=== PATIENT | female | born 1990 | race Two or more races ===

== ENCOUNTER 2016-08-15 17:33 | Emergency (ER) | payer OTHER ==
[2016-08-15] MEDS ORDERED: SULFAMETH/TRIMETH DS 800/160 MG TABLET PO STA (18:10)
[2016-08-15] MEDS ORDERED: SULFAMETH/TRIMETH DS 800/160 MG TABLET PO ONE (18:15)
== END 2016-08-15 18:17 | disposition home or self-care (01) ==
DX: N30.90 Cystitis, unspecified without hematuria (principal); J45.909 Unspecified asthma, uncomplicated
CPT/HCPCS: 81001; 81025; 87086; 99283; A9270

== ENCOUNTER 2016-09-08 13:51 | Emergency (ER) | payer OTHER ==
[2016-09-08] MEDS ORDERED: KETOROLAC 60 MG/2 ML VIAL IM STA (15:46)
[2016-09-08] MEDS ORDERED: KETOROLAC 60 MG/2 ML VIAL ONE (15:50)
== END 2016-09-08 16:13 | disposition home or self-care (01) ==
DX: S16.1XXA Strain of muscle, fascia and tendon at neck level, initial encounter (principal); S46.912A Strain of unspecified muscle, fascia and tendon at shoulder and upper arm level, left arm, initial encounter; S09.90XA Unspecified injury of head, initial encounter; V43.62XA Car passenger injured in collision with other type car in traffic accident, initial encounter; Y92.488 Other paved roadways as the place of occurrence of the external cause; J45.909 Unspecified asthma, uncomplicated

== ENCOUNTER 2017-03-13 16:50 | Emergency (ER) | payer OTHER ==
[2017-03-13 18:26] LABS: BILIRUBIN,URINE NEGATIVE (NEGATIVE)
[2017-03-13 18:29] LABS: UA w/ MICROSCOPIC CHARGE YES
[2017-03-13 18:30] LABS: HCG UR QUAL NEGATIVE
[2017-03-13 18:45] LABS: UR CULTURE IF IND INDICATED
[2017-03-13 19:40] VITALS: BP 117/70
[2017-03-13] MEDS ORDERED: HYDROcod/ACETAM 5/325 MG TABLET PO STA (19:44)
[2017-03-13] MEDS ORDERED: ONDANSETRON ODT 4 MG TABLET TL STA (19:44)
[2017-03-13] MEDS ORDERED: CIPROFLOXACIN 250 MG TABLET PO STA (19:44)
--- NOTE | 2017-03-13 19:46 | ED Physician Documentation ---
PD HPI FEMALE - Stated complaint Stated Complaint: FEMALE - Chief complaint Chief Complaint: Abd Pain - History obtained from History obtained from: Patient - History of Present Illness Timing - onset: Other (One day of urinary frequency and dysuria with chills and nausea without vomiting and right flank pain. No vaginal discharge or potential for . No underlying health issues.) Review of Systems Constitutional: reports: Chills, Fatigue. denies: Fever Nose: denies: Rhinorrhea / runny nose, Congestion Cardiac: reports: Reviewed and negative Respiratory: reports: Reviewed and negative PD PAST MEDICAL HISTORY - Past Medical History Respiratory: Asthma - Past Surgical History Past Surgical History: Yes Ortho: Arthroscopic surgery HEENT: Rhinoplasty - Present Medications Home Medications: Ambulatory Orders Medication Instructions Recorded Confirmed Albuterol Sulf [Ventolin Hfa 1 puffs INH Q4H PRN 08/15/16 09/08/16 Inhaler] Cetirizine [ZyrTEC] 10 mg PO DAILY 09/08/16 09/08/16 Cyclobenzaprine [Flexeril] 10 mg PO TID PRN #20 tablet 09/08/16 Fluticasone/Salmeterol [Advair 1 each INH DAILY 09/08/16 09/08/16 250-50 Diskus] Hydrocodone/Acetaminophen 1 - 2 each PO Q6H PRN #10 tablet 09/08/16 [Hydrocodon-Acetaminophen 5-325] Montelukast [Singulair] 10 mg PO DAILY 09/08/16 09/08/16 Ondansetron Odt [Zofran] 4 mg TL Q6H PRN #10 tablet 09/08/16 Ciprofloxacin HCl [Cipro] 500 mg PO BID #14 tablet 03/13/17 HYDROcod/ACETAM 5/325 [Hudson 5/325] 1 - 2 ea PO Q6H PRN #10 tablet 03/13/17 Ondansetron HCl [Zofran] 4 mg PO Q6H PRN #7 tablet 03/13/17 - Allergies Allergies/Adverse Reactions: Allergies Allergy/AdvReac Type Severity Reaction Status Date / Time Penicillins Allergy Anaphylaxis Verified 03/13/17 17:06 - Social History Does the pt smoke?: No Smoking Status: Never smoker Does the pt drink ETOH?: Yes Does the pt have substance abuse?: No - Immunizations Immunizations are current?: Yes Immunizations: TDAP >10years/unknown - POLST Patient has POLST: No PD ED PE NORMAL - Vitals Vital signs reviewed: Yes - General General: Alert and oriented X 3, No acute distress - Respiratory Respiratory: No respiratory distress, Clear bilaterally - Abdomen Abdomen: Soft, Non tender - Back Back: Other (Mild right CVA tenderness) - Derm Derm: Normal color, Warm and dry - Neuro Neuro: Alert and oriented X 3, Normal speech - Psych Psych: Normal mood, Normal affect Results - Vitals Vitals: Vital Signs - 24 hr 03/13/17 03/13/17 17:04 19:39 Temperature 36.7 C 36.6 C Heart Rate 66 73 Respiratory 16 15 Rate Blood Pressure 123/68 117/70 O2 Saturation 100 96 Oxygen O2 Source Room air - Labs Labs: Laboratory Tests 03/13/17 17:25 Urine Color YELLOW Urine Clarity CLEAR Urine pH 7.0 Ur Specific [place]ow 1.015 Urine Protein NEGATIVE Urine Glucose (UA) NEGATIVE Urine Ketones NEGATIVE Urine Occult Blood TRACE-LYSE Urine Nitrite NEGATIVE Urine Bilirubin NEGATIVE Urine Urobilinogen 0.2 (NORMAL) Ur Leukocyte Esterase TRACE H Urine RBC 0-5 Urine WBC 6-10 H Ur Squamous Epith Cells NONE SEEN Urine Bacteria None Seen Ur Microscopic Review INDICATED Urine Culture Comments INDICATED Urine HCG, Qual NEGATIVE PD MEDICAL DECISION MAKING - ED course ED course: The patient and family were counseled as to the diagnosis and need for follow- up. I counseled the patient with regard to signs and symptoms that would necessitate an urgent reevaluation in the emergency department. They understand they are welcome to return at any time if worse or if not improving as expected. This document was made in part using voice recognition software. While efforts are made to proofread this documents, sound alike and grammatical errors may occur. Departure - Departure Disposition: 01 Home, Self Care Clinical Impression: Pyelonephritis Condition: Good Record reviewed to determine appropriate education?: Yes Instructions: Pyelonephritis Dc Prescriptions: Ciprofloxacin HCl [Cipro] 500 mg PO BID #14 tablet HYDROcod/ACETAM 5/325 [Hudson 5/325] 1 - 2 ea PO Q6H PRN #10 tablet PRN Reason: Pain Ondansetron HCl [Zofran] 4 mg PO Q6H PRN #7 tablet PRN Reason: Nausea / Vomiting Comments: Call your doctor to arrange a follow-up appointment, make the next available appointment. In the interim, return anytime if worse or if new symptoms develop. We will culture your urine, the results should be done in 48-72 hours. If an antibiotic change is necessary we will call you.
[2017-03-13] MEDS ORDERED: ONDANSETRON ODT 4 MG TABLET ONE (19:54)
[2017-03-13] MEDS ORDERED: HYDROcod/ACETAM 5/325 MG TABLET ONE (19:54)
[2017-03-13] MEDS ORDERED: CIPROFLOXACIN 250 MG TABLET PO ONE (19:55)
== END 2017-03-13 19:54 | disposition home or self-care (01) ==
LOC: ED 16:50
DX: N12 Tubulo-interstitial nephritis, not specified as acute or chronic (principal); J45.909 Unspecified asthma, uncomplicated
CPT/HCPCS: 81001; 81025; 87086; 99283; A9270; Q0162; 81003

== ENCOUNTER 2017-06-08 23:15 | Emergency (ER) | payer OTHER ==
[2017-06-08 23:28] VITALS: BP 115/73
--- NOTE | 2017-06-09 00:08 | XRAY Report ---
EXAM: RIGHT FOREARM RADIOGRAPHY EXAM DATE: 06/08/2017 11:51 PM. CLINICAL HISTORY: Fell, forearm swelling. COMPARISON: None. TECHNIQUE: 2 views. FINDINGS: Bones: Normal. No fractures or bone lesions. Joints: Normal. No effusions or subluxations in the visualized wrist or elbow joints. Soft Tissues: Normal. No soft tissue swelling. IMPRESSION: Normal forearm radiography. [facility] Referring Provider Line: [phone] SITE ID: [id number]
--- NOTE | 2017-06-09 00:10 | ED Physician Documentation ---
PD HPI UPPER EXT INJURY - Stated complaint Stated Complaint: RT ARM INJURY - Chief complaint Chief Complaint: Ext Problem - History obtained from History obtained from: Patient, Friend - History of Present Illness Location: Right, Forearm Type of injury: Fall Where injury occurred: Other Timing - onset: Today Timing - details: Abrupt onset Improved by: Rest, Immobilization Worsened by: Moving, Palpating Associated symptoms: Swelling, Discolored Contributing factors: No: Anticoagulated, Prior ortho surgery Similar symptoms before: Has not had sx before Recently seen: Not recently seen - Additonal information Additional information: patient is a 26 year old female with no significant past medical history who is presenting to the emergency department for right arm pain. patient states that she was dancing when she was falling over she hit her forearm on the table. patient denies any other injuries at this time. Review of Systems Constitutional: reports: Reviewed and negative Eyes: reports: Reviewed and negative Ears: reports: Reviewed and negative Nose: reports: Reviewed and negative Throat: reports: Reviewed and negative Cardiac: reports: Reviewed and negative Respiratory: reports: Reviewed and negative GI: denies: Nausea, Vomiting : reports: Reviewed and negative Skin: denies: Abrasion (s), Laceration (s) Musculoskeletal: reports: Extremity pain, Extremity swelling Neurologic: denies: Generalized weakness, Focal weakness, Numbness Immunocompromised: denies: Immunocompromised PD PAST MEDICAL HISTORY - Past Medical History Past Medical History: Yes Cardiovascular: None Respiratory: Asthma Neuro: None Endocrine/Autoimmune: None GI: None SUPPLIER QUALITY SPECIALIST: None : None Psych: None Musculoskeletal: None Derm: None - Past Surgical History Past Surgical History: Yes Ortho: Arthroscopic surgery HEENT: Rhinoplasty - Present Medications Home Medications: Ambulatory Orders Medication Instructions Recorded Confirmed Albuterol Sulf [Ventolin Hfa 1 puffs INH Q4H PRN 08/15/16 06/08/17 Inhaler] Cetirizine [ZyrTEC] 10 mg PO DAILY 09/08/16 06/08/17 Fluticasone/Salmeterol [Advair 1 each INH DAILY 09/08/16 09/08/16 250-50 Diskus] Montelukast [Singulair] 10 mg PO DAILY 09/08/16 06/08/17 - Allergies Allergies/Adverse Reactions: Allergies Allergy/AdvReac Type Severity Reaction Status Date / Time Penicillins Allergy Anaphylaxis Verified 06/08/17 23:27 - Social History Does the pt smoke?: No Smoking Status: Never smoker Does the pt drink ETOH?: Yes Does the pt have substance abuse?: No - Immunizations Immunizations are current?: Yes Immunizations: TDAP >10years/unknown - POLST Patient has POLST: No PD ED PE NORMAL - Vitals Vital signs reviewed: Yes - General General: Alert and oriented X 3, No acute distress - HEENT HEENT: Atraumatic - Neck Neck: No bony TTP - Cardiac Cardiac: RRR - Respiratory Respiratory: No respiratory distress - Abdomen Abdomen: Non distended - Neuro Neuro: Alert and oriented X 3, No motor deficit, No sensory deficit, Normal speech Eye Opening: Spontaneous Motor: Obeys Commands Verbal: Oriented GCS Score: 15 PD ED PE EXPANDED - Extremities Extremities: Right forearm (tenderness and swelling to proximal right dorsal forarm. no bony deformity) Results - Vitals Vitals: Vital Signs - 24 hr 06/08/17 23:23 Temperature 36.6 C Heart Rate 75 Respiratory 16 Rate Blood Pressure 115/73 O2 Saturation 99 Oxygen O2 Source Room air - Rads (name of study) forearm x-ray Radiology: EMP read indepedently (no acute fracture or dislocation) PD MEDICAL DECISION MAKING - ED course Complexity details: reviewed old records, reviewed results, re-evaluated patient , considered differential, d/w patient ED course: patient was seen and examined at bedside. patient was sent for imaging. when patient returned the results were reviewed. Patient had no fracture or dislocation. patient was given an ice pack. patient required no further work up and was stable for discharge with outpatient follow up. Departure - Departure Disposition: 01 Home, Self Care Clinical Impression: Traumatic hematoma of right forearm Condition: Good Instructions: ED Hematoma Follow-Up: primary,care provider [Other] - As Needed Comments: Your diagnostics today were within normal limits. there is no acute fracture or dislocation. You should ice your injury and take motrin or tylenol as needed for pain. You will likely have bruising and swelling over the next few days. You should follow up with your pmd if your symptoms persist. You may return to the emergency department at any time for new, worsening or uncontrollable symptoms.
== END 2017-06-09 00:26 | disposition home or self-care (01) ==
LOC: ED 23:15
DX: S50.11XA Contusion of right forearm, initial encounter (principal); W22.09XA Striking against other stationary object, initial encounter; Y93.41 Activity, dancing; Y92.89 Other specified places as the place of occurrence of the external cause; J45.909 Unspecified asthma, uncomplicated
CPT/HCPCS: 99283